=== PATIENT | female | born 1930 | race Caucasian/White ===

== ENCOUNTER 2016-09-22 09:26 | Outpatient (RCR) | payer MEDICARE, OTHER ==
[2016-03-05 19:55] VITALS: BP 162/86
[~2016-09-22 09:26] MED LIST: AMLODIPINE BES2.5 MG PO; ASPIRIN E.C. 8181 M1 PO; BACTRIM DS 8001 TAB PO; CALCIUM 600 W/V1 TAB PO; CLARITIN10 M1 PO; COLACE100 M1 PO; CRANBERRY FRUI425 MG PO; DAILY MULTIPLE1 T18 PO; DONEPEZIL HCL5 MG PO; DULCOLAX PO; DUO-KAPS1 CAP PO; DURAGESIC1 EAC1 TD; DURAGESIC25 MCG/PAT TD; FENTANYL 50MCG TD; FLEET ENEM1 BOT/133 RC; FUROSEMIDE20 MG PO; HCTZ 25MG25 MG PO; INDERAL PO; KETOROLAC TROME10 MG PO; LEXAPRO20 M1 PO; LISINOPRIL20 MG PO; LOPRESSOR100 M1; LOPRESSOR100 MG PO; MELOXICAM15 MG PO; METOPROLOL TAR100 MG PO; MIRALAX17 GM/DOSE PO; NAPROXEN375 MG PO; NORCO 325 MG-51 TA1 PO; NORCO 325 MG-51 TAB PO; PREDNISONE10 MG PO; PYRIDIUM100 M1 PO; RITE AID CALCI600 MG PO; SIMVASTATIN10 MG PO; TRIAMCINOLONE A15 GM TP; VALIUM 5MG T5 MG/TAB PO; ZESTRIL10 M1 PO; ZESTRIL40 MG PO; [UNRECOGNIZED DRUG - OTHER] NAS
== END 2016-10-20 13:25 ==
LOC: OPPGERO 09:26
DX: F32.2 Major depressive disorder, single episode, severe without psychotic features (principal); F41.1 Generalized anxiety disorder

== ENCOUNTER → 2017-01-13 | Outpatient (CLI) | payer MEDICARE, MEDICAID ==
[2016-03-05 19:55] VITALS: BP 162/86
== END ==
LOC: LAB 08:01
DX: I10 Essential (primary) hypertension (principal)

== ENCOUNTER → 2017-08-18 | Outpatient (CLI) | payer MEDICARE, MEDICAID ==
[2016-03-05 19:55] VITALS: BP 162/86
[2017-08-18 14:12] LABS: URINE APPEARANCE CLEAR; URINE BILIRUBIN NEGATIVE (NEGATIVE); URINE BLOOD NEGATIVE (NEGATIVE); URINE COLOR YELLOW; URINE GLUCOSE NEGATIVE (NEGATIVE); URINE KETONE NEGATIVE (NEGATIVE); URINE LEUKOCYTE ESTERASE NEGATIVE (NEGATIVE); URINE NITRATE NEGATIVE (NEGATIVE); URINE PROTEIN(semi-quant) TRACE mg/dL (NEGATIVE); URINE UROBILINOGEN NORMAL (NORMAL); URINE WBC 0-1 /hpf (0-3)
== END ==
LOC: LAB 13:08
PROVIDERS: Family Medicine
DX: R35.0 Frequency of micturition (principal)

== ENCOUNTER → 2017-09-24 | Outpatient (CLI) | payer MEDICARE, MEDICAID ==
[2016-03-05 19:55] VITALS: BP 162/86
[2017-09-24 13:19] LABS: BUN/CREATININE RATIO 24.5 (6.0-26.0); CALCIUM 9.6 mg/dL (8.4-10.2); POTASSIUM 3.9 mmol/L (3.6-5.0)
== END ==
LOC: LAB 12:41
PROVIDERS: Family Medicine
DX: R60.0 Localized edema (principal)

== ENCOUNTER → 2017-10-16 | Outpatient (CLI) | payer MEDICARE, MEDICAID ==
[2016-03-05 19:55] VITALS: BP 162/86
== END ==
LOC: LAB 08:47
DX: R68.89 Other general symptoms and signs (principal)

== ENCOUNTER → 2018-11-25 | Outpatient (CLI) | payer MEDICARE, MEDICAID ==
[2016-03-05 19:55] VITALS: BP 162/86
[2018-11-25 16:59] LABS: POTASSIUM 3.8 mmol/L (3.6-5.0)
== END ==
LOC: LAB 16:13
PROVIDERS: Family Medicine
DX: R39.81 Functional urinary incontinence (principal); M19.90 Unspecified osteoarthritis, unspecified site; F41.9 Anxiety disorder, unspecified; M47.817 Spondylosis without myelopathy or radiculopathy, lumbosacral region; R45.1 Restlessness and agitation; R60.9 Edema, unspecified; I10 Essential (primary) hypertension

== ENCOUNTER → 2019-01-13 | Outpatient (CLI) | payer MEDICARE, MEDICAID ==
[2016-03-05 19:55] VITALS: BP 162/86
[2019-01-13 15:58] LABS: BASO # 0.1 (0.02-0.10); EOS # 0.3 (0.04-0.40); EOS % 1.8 % (1.0-5.0); HEMATOCRIT 34.3 % (37.0-47.0); HEMOGLOBIN 11.1 g/dL (12.5-16.0); MEAN CELL VOLUME 100 fl (78-100); MEAN CORPUSCULAR HEMOGLOBIN 33 pg (27-31); MEAN CORPUSCULAR HGB CONC 32 g/dL (33-37); MEAN PLATELET VOLUME 9.9 fl (7.4-10.4); PLATELET COUNT 366 K/mm3 (130-400); RED BLOOD COUNT 3.42 M/mm3 (4.10-5.30); RED CELL DISTRIBUTION WIDTH 12.5 % (11.5-14.5); WHITE BLOOD COUNT 15.4 K/mm3 (4.8-10.8)
[2019-01-13 16:06] LABS: POTASSIUM 3.9 mmol/L (3.6-5.0)
[2019-01-13 16:47] LABS: MONO # 1.8 (0.20-0.80); NEU # 11.2 (1.40-6.50)
== END ==
LOC: LAB 15:31
PROVIDERS: Family Medicine
DX: M47.817 Spondylosis without myelopathy or radiculopathy, lumbosacral region (principal); R53.83 Other fatigue; F41.9 Anxiety disorder, unspecified; F32.9 Major depressive disorder, single episode, unspecified; K52.9 Noninfective gastroenteritis and colitis, unspecified

== ENCOUNTER → 2019-01-19 | Outpatient (CLI) | payer MEDICARE, MEDICAID ==
[2016-03-05 19:55] VITALS: BP 162/86
== END ==
LOC: RAD 15:49
DX: I27.29 Other secondary pulmonary hypertension (principal); I08.3 Combined rheumatic disorders of mitral, aortic and tricuspid valves

== ENCOUNTER → 2019-07-24 | Outpatient (CLI) | payer MEDICARE, MEDICAID ==
[2016-03-05 19:55] VITALS: BP 162/86
== END ==
LOC: RAD 15:20
DX: M47.817 Spondylosis without myelopathy or radiculopathy, lumbosacral region (principal); M16.12 Unilateral primary osteoarthritis, left hip; M16.11 Unilateral primary osteoarthritis, right hip; M17.12 Unilateral primary osteoarthritis, left knee; Z96.642 Presence of left artificial hip joint

== ENCOUNTER → 2019-10-03 | Outpatient (CLI) | payer MEDICARE, MEDICAID ==
[2016-03-05 19:55] VITALS: BP 162/86
[2019-10-03 16:50] LABS: URINE APPEARANCE CLOUDY; URINE COLOR YELLOW
[2019-10-03 16:51] LABS: URINE BILIRUBIN NEGATIVE (NEGATIVE); URINE BLOOD TRACE (NEGATIVE); URINE GLUCOSE NEGATIVE (NEGATIVE); URINE KETONE NEGATIVE (NEGATIVE); URINE LEUKOCYTE ESTERASE 2+ (NEGATIVE); URINE NITRATE POSITIVE (NEGATIVE); URINE PROTEIN(semi-quant) TRACE mg/dL (NEGATIVE); URINE UROBILINOGEN NORMAL (NORMAL); URINE WBC >50 /hpf (0-3)
== END ==
LOC: LAB 15:38
PROVIDERS: Family Medicine
DX: N39.0 Urinary tract infection, site not specified (principal)

== ENCOUNTER → 2019-10-12 | Outpatient (CLI) | payer MEDICARE, MEDICAID ==
[2016-03-05 19:55] VITALS: BP 162/86
[2019-10-12 14:07] LABS: URINE APPEARANCE CLEAR; URINE BILIRUBIN NEGATIVE (NEGATIVE); URINE BLOOD NEGATIVE (NEGATIVE); URINE COLOR YELLOW; URINE GLUCOSE NEGATIVE (NEGATIVE); URINE KETONE NEGATIVE (NEGATIVE); URINE LEUKOCYTE ESTERASE NEGATIVE (NEGATIVE); URINE NITRATE NEGATIVE (NEGATIVE); URINE PROTEIN(semi-quant) NEGATIVE (NEGATIVE); URINE UROBILINOGEN NORMAL (NORMAL)
[2019-10-12 14:08] LABS: URINE WBC 0-1 /hpf (0-3)
== END ==
LOC: LAB 13:43
PROVIDERS: Physician Assistant
DX: Z87.440 Personal history of urinary (tract) infections (principal)

== ENCOUNTER → 2019-10-31 | Outpatient (CLI) | payer MEDICARE, MEDICAID ==
[2016-03-05 19:55] VITALS: BP 162/86
[2019-10-31 13:51] LABS: URINE APPEARANCE HAZY; URINE BILIRUBIN NEGATIVE (NEGATIVE); URINE BLOOD NEGATIVE (NEGATIVE); URINE COLOR YELLOW; URINE GLUCOSE NEGATIVE (NEGATIVE); URINE KETONE NEGATIVE (NEGATIVE); URINE LEUKOCYTE ESTERASE 1+ (NEGATIVE); URINE NITRATE NEGATIVE (NEGATIVE); URINE PROTEIN(semi-quant) TRACE mg/dL (NEGATIVE); URINE UROBILINOGEN NORMAL (NORMAL)
[2019-10-31 13:52] LABS: URINE MUCUS PRESENT (NOT PRESENT)
== END ==
LOC: LAB 13:14
PROVIDERS: Family Medicine
DX: Z87.440 Personal history of urinary (tract) infections (principal)

== ENCOUNTER → 2020-08-13 | Outpatient (CLI) | payer MEDICARE, MEDICAID ==
[2016-03-05 19:55] VITALS: BP 162/86
[2020-08-13 13:48] LABS: URINE APPEARANCE HAZY; URINE COLOR YELLOW; URINE PROTEIN(semi-quant) TRACE mg/dL (NEGATIVE)
[2020-08-13 13:49] LABS: URINE BILIRUBIN NEGATIVE (NEGATIVE); URINE BLOOD NEGATIVE (NEGATIVE); URINE GLUCOSE NEGATIVE (NEGATIVE); URINE KETONE NEGATIVE (NEGATIVE); URINE LEUKOCYTE ESTERASE 1+ (NEGATIVE); URINE MUCUS PRESENT (NOT PRESENT); URINE NITRATE NEGATIVE (NEGATIVE); URINE UROBILINOGEN NORMAL (NORMAL)
== END ==
LOC: LAB 13:20
PROVIDERS: Family Medicine
DX: N39.0 Urinary tract infection, site not specified (principal)

== ENCOUNTER → 2021-01-27 | Outpatient (CLI) | payer MEDICARE, MEDICAID ==
[2016-03-05 19:55] VITALS: BP 162/86
[~2021-01-27] MED LIST changes: +AMLODIPINE BESYL5 MG PO; +CEFDINIR300 MG PO; +DITROPAN 5MG TAB5 MG PO; +DITROPAN XL 5MG5 M1 PO; +FLAGYL500 M1 PO; +HYDROCHLOROTH12.5 M2 PO; +LISINOPRIL40 MG PO; +MACROBID 100 M100 MG PO; +MACROBID 1100 MG/CAP PO; +NAMENDA10 MG PO; +TYLENOL ARTHRI650 M2 PO; +XANAX0.5 M1 PO
[2021-01-28 09:22] LABS: URINE APPEARANCE CLOUDY; URINE BILIRUBIN NEGATIVE (NEGATIVE); URINE BLOOD 50 ery/uL (NEGATIVE); URINE COLOR YELLOW; URINE GLUCOSE NEGATIVE (NEGATIVE); URINE KETONE NEGATIVE (NEGATIVE); URINE LEUKOCYTE ESTERASE 2+ (NEGATIVE); URINE MUCUS PRESENT (NOT PRESENT); URINE NITRATE NEGATIVE (NEGATIVE); URINE PROTEIN(semi-quant) TRACE mg/dL (NEGATIVE); URINE UROBILINOGEN NORMAL (NORMAL); URINE WBC 31-50 /hpf (0-3)
== END ==
LOC: LAB 15:26
PROVIDERS: Family Medicine
DX: N39.0 Urinary tract infection, site not specified (principal)

== ENCOUNTER → 2021-03-17 | Outpatient (CLI) | payer MEDICARE, MEDICAID ==
[2021-03-17 16:13] LABS: URINE APPEARANCE CLOUDY; URINE BILIRUBIN NEGATIVE (NEGATIVE); URINE BLOOD 50 ery/uL (NEGATIVE); URINE COLOR YELLOW; URINE GLUCOSE NEGATIVE (NEGATIVE); URINE KETONE NEGATIVE (NEGATIVE); URINE LEUKOCYTE ESTERASE 2+ (NEGATIVE); URINE NITRATE NEGATIVE (NEGATIVE); URINE PROTEIN(semi-quant) TRACE mg/dL (NEGATIVE); URINE UROBILINOGEN NORMAL (NORMAL); URINE WBC >50 /hpf (0-3)
[2021-03-17 16:14] LABS: URINE MUCUS PRESENT (NOT PRESENT)
== END ==
LOC: LAB 14:51
PROVIDERS: Family Medicine
DX: N39.0 Urinary tract infection, site not specified (principal)

== ENCOUNTER 2021-03-19 03:21 | Emergency (ER) | payer MEDICARE, MEDICAID ==
[~2021-03-19 03:21] MED LIST changes: -AMLODIPINE BESYL5 MG PO; -CEFDINIR300 MG PO; -DITROPAN 5MG TAB5 MG PO; -DITROPAN XL 5MG5 M1 PO; -FLAGYL500 M1 PO; -HYDROCHLOROTH12.5 M2 PO; -LISINOPRIL40 MG PO; -MACROBID 100 M100 MG PO; -MACROBID 1100 MG/CAP PO; -NAMENDA10 MG PO; -TYLENOL ARTHRI650 M2 PO; -XANAX0.5 M1 PO
[2021-03-19 04:10] LABS: BASO # 0.01 (0.02-0.10); EOS # 0.16 (0.04-0.40); EOS % 1.1 % (1.0-5.0); HEMATOCRIT 33.9 % (37.0-47.0); HEMOGLOBIN 11.1 g/dL (12.5-16.0); LYMPH# 1.25 (1.50-4.00); MEAN CELL VOLUME 101 fl (78-100); MEAN CORPUSCULAR HEMOGLOBIN 33 pg (27-31); MEAN CORPUSCULAR HGB CONC 33 g/dL (33-37); MONO # 0.63 (0.20-0.80); NEU # 12.02 (1.40-6.50); PLATELET COUNT 258 K/mm3 (130-400); RED BLOOD COUNT 3.35 M/mm3 (4.10-5.30); RED CELL DISTRIBUTION WIDTH 12.6 % (11.5-14.5); WHITE BLOOD COUNT 14.1 K/mm3 (4.8-10.8)
[2021-03-19 04:19] LABS: ALBUMIN 3.9 g/dL (3.4-4.8); POTASSIUM 3.6 mmol/L (3.5-5.1)
[2021-03-19 04:20] LABS: SODIUM 141 mmol/L (136-145)
[2021-03-19 04:21] LABS: CALCIUM 8.8 mg/dL (8.3-10.5)
[2021-03-19 04:22] LABS: GLUCOSE 144 mg/dL (65-105)
[2021-03-19 04:23] LABS: CARBON DIOXIDE 23 mmol/L (23-31)
[2021-03-19 04:24] LABS: TOTAL BILIRUBIN 0.6 mg/dL (0.2-1.2)
[2021-03-19 04:27] LABS: AST-SGOT 507 U/L (5-34)
[2021-03-19 04:28] LABS: ALT/SGPT 216 U/L (0-55)
[2021-03-19 04:29] LABS: LIPASE 34 U/L (8-78)
[2021-03-19 04:41] LABS: TROPONIN-I < 0.03 ng/mL (<0.030)
[2021-03-19 04:41] LABS: URINE APPEARANCE HAZY; URINE BILIRUBIN NEGATIVE (NEGATIVE); URINE BLOOD TRACE (NEGATIVE); URINE COLOR YELLOW; URINE GLUCOSE NEGATIVE (NEGATIVE); URINE KETONE NEGATIVE (NEGATIVE); URINE LEUKOCYTE ESTERASE 2+ (NEGATIVE); URINE NITRATE NEGATIVE (NEGATIVE); URINE PROTEIN(semi-quant) NEGATIVE (NEGATIVE); URINE UROBILINOGEN NORMAL (NORMAL); URINE WBC 31-50 /hpf (0-3)
[2021-03-19] MEDS ORDERED: LISINOPRIL40 MG PO (04:56)
[2021-03-19] MEDS ORDERED: AMLODIPINE BESYL5 MG PO (04:59)
[2021-03-19] MEDS ORDERED: DITROPAN 5MG TAB5 MG PO (05:00)
[2021-03-19] MEDS ORDERED: XANAX0.5 M1 PO (05:00)
[2021-03-19] MEDS ORDERED: HYDROCHLOROTH12.5 M2 PO (05:02)
[2021-03-19] MEDS ORDERED: MACROBID 1100 MG/CAP PO (05:02)
[2021-03-19] MEDS ORDERED: DITROPAN XL 5MG5 M1 PO (05:03)
[2021-03-19 05:27] LABS: D-DIMER 4.69 mg/L FEU (0.15-0.50)
[2021-03-19 09:30] VITALS: BP 98/50
[2021-03-19 09:30] LABS: ACETAMINOPHEN < 1 ug/mL
[2021-03-19] MEDS ORDERED: NAMENDA10 MG PO (10:38)
[2021-03-19] MEDS ORDERED: MACROBID 100 M100 MG PO (10:38)
[2021-03-19] MEDS ORDERED: TYLENOL ARTHRI650 M2 PO (10:38)
[2021-03-20] MEDS ORDERED: CEFDINIR300 MG PO (17:11)
[2021-03-20] MEDS ORDERED: FLAGYL500 M1 PO (17:23)
== END 2021-03-19 09:30 | disposition other institution (70) ==
LOC: ED 03:21
PROVIDERS: Nurse Practitioner Family
DX: K52.9 Noninfective gastroenteritis and colitis, unspecified (principal); F03.90 Unspecified dementia, unspecified severity, without behavioral disturbance, psychotic disturbance, mood disturbance, and anxiety; N39.0 Urinary tract infection, site not specified; R94.5 Abnormal results of liver function studies; K57.90 Diverticulosis of intestine, part unspecified, without perforation or abscess without bleeding; I10 Essential (primary) hypertension; F41.9 Anxiety disorder, unspecified; F32.9 Major depressive disorder, single episode, unspecified; Z91.19 Patient's noncompliance with other medical treatment and regimen; Z79.899 Other long term (current) drug therapy; Z20.822 Contact with and (suspected) exposure to COVID-19
CPT/HCPCS: J0696; J2405; J7030; Q9967

== ENCOUNTER 2021-03-19 08:34 | Inpatient (IN) | payer MEDICARE, MEDICAID ==
[~2021-03-19 08:34] MED LIST changes: +AMLODIPINE BESYL5 MG PO; +DITROPAN 5MG TAB5 MG PO; +DITROPAN XL 5MG5 M1 PO; +HYDROCHLOROTH12.5 M2 PO; +LISINOPRIL40 MG PO; +MACROBID 1100 MG/CAP PO; +XANAX0.5 M1 PO
[2021-03-19 09:30] VITALS: BP 98/50
[2021-03-19] MEDS ORDERED: MACROBID 100 M100 MG PO (10:38)
[2021-03-19] MEDS ORDERED: NAMENDA10 MG PO (10:38)
[2021-03-19] MEDS ORDERED: TYLENOL ARTHRI650 M2 PO (10:38)
[2021-03-19 14:03] VITALS: BP 117/63
[2021-03-19 18:20] VITALS: BP 84/51
[2021-03-19 21:33] VITALS: BP 101/63
[2021-03-19 22:57] LABS: HEPATITIS C ANTIBODY Negative (Negative)
[2021-03-20 01:50] VITALS: BP 114/60
[2021-03-20 06:13] VITALS: BP 118/64
[2021-03-20 07:59] LABS: BASO # 0.04 (0.02-0.10); EOS # 0.92 (0.04-0.40); HEMATOCRIT 31.5 % (37.0-47.0); HEMOGLOBIN 10.2 g/dL (12.5-16.0); LYMPH# 1.85 (1.50-4.00); MEAN CELL VOLUME 101 fl (78-100); MEAN CORPUSCULAR HEMOGLOBIN 33 pg (27-31); MEAN CORPUSCULAR HGB CONC 32 g/dL (33-37); MEAN PLATELET VOLUME 11.5 fl (7.4-10.4); MONO # 0.91 (0.20-0.80); NEU # 7.73 (1.40-6.50); PLATELET COUNT 210 K/mm3 (130-400); RED BLOOD COUNT 3.12 M/mm3 (4.10-5.30); RED CELL DISTRIBUTION WIDTH 12.8 % (11.5-14.5); WHITE BLOOD COUNT 11.5 K/mm3 (4.8-10.8)
[2021-03-20 08:11] LABS: ALBUMIN 3.6 g/dL (3.4-4.8); POTASSIUM 4.1 mmol/L (3.5-5.1)
[2021-03-20 08:12] LABS: CALCIUM 8.5 mg/dL (8.3-10.5)
[2021-03-20 08:13] LABS: TOTAL PROTEIN 6.5 g/dL (6.2-8.1)
[2021-03-20 08:15] LABS: TOTAL BILIRUBIN 1.1 mg/dL (0.2-1.2)
[2021-03-20 09:10] VITALS: BP 107/68
[2021-03-20 13:37] VITALS: BP 132/74
[2021-03-20 16:27] VITALS: BP 132/74
[2021-03-20] MEDS ORDERED: CEFDINIR300 MG PO (17:11)
[2021-03-20] MEDS ORDERED: FLAGYL500 M1 PO (17:23)
[2021-03-20 17:33] VITALS: BP 135/77
== END 2021-03-20 17:42 | DRG 690 ==
LOC: MED/SURG 08:34
PROVIDERS: ADMIT Physician Assistant
DX: N39.0 Urinary tract infection, site not specified (principal); F03.90 Unspecified dementia, unspecified severity, without behavioral disturbance, psychotic disturbance, mood disturbance, and anxiety; I10 Essential (primary) hypertension; K52.9 Noninfective gastroenteritis and colitis, unspecified; R53.1 Weakness; R94.5 Abnormal results of liver function studies; R29.6 Repeated falls; Z96.642 Presence of left artificial hip joint; Z90.710 Acquired absence of both cervix and uterus
CPT/HCPCS: J0696; J1650

== ENCOUNTER → 2021-04-04 | Outpatient (CLI) | payer MEDICARE, MEDICAID ==
[~2021-04-04] MED LIST changes: +CEFDINIR300 MG PO; +FLAGYL500 M1 PO; +MACROBID 100 M100 MG PO; +NAMENDA10 MG PO; +TYLENOL ARTHRI650 M2 PO
[2021-04-04 17:52] LABS: POTASSIUM 4.3 mmol/L (3.5-5.1)
[2021-04-04 17:53] LABS: CALCIUM 9.7 mg/dL (8.3-10.5)
[2021-04-04 17:55] LABS: TOTAL PROTEIN 7.4 g/dL (6.2-8.1)
[2021-04-04 17:56] LABS: TOTAL BILIRUBIN 0.3 mg/dL (0.2-1.2)
== END ==
LOC: LAB 17:20
PROVIDERS: Family Medicine
DX: Z87.440 Personal history of urinary (tract) infections (principal)

== ENCOUNTER → 2021-04-14 | Outpatient (CLI) | payer MEDICARE, MEDICAID ==
[2021-04-14 13:09] LABS: URINE APPEARANCE HAZY; URINE BILIRUBIN NEGATIVE (NEGATIVE); URINE BLOOD TRACE (NEGATIVE); URINE COLOR YELLOW; URINE GLUCOSE NEGATIVE (NEGATIVE); URINE KETONE NEGATIVE (NEGATIVE); URINE LEUKOCYTE ESTERASE 2+ (NEGATIVE); URINE NITRATE POSITIVE (NEGATIVE); URINE PROTEIN(semi-quant) TRACE mg/dL (NEGATIVE); URINE UROBILINOGEN NORMAL (NORMAL); URINE WBC 31-50 /hpf (0-3)
[2021-04-14 13:10] LABS: URINE MUCUS PRESENT (NOT PRESENT)
== END ==
LOC: LAB 12:42
PROVIDERS: Family Medicine
DX: H91.90 Unspecified hearing loss, unspecified ear (principal); R41.0 Disorientation, unspecified; Z99.89 Dependence on other enabling machines and devices

== ENCOUNTER 2021-07-10 09:54 | Outpatient (RCR) | payer MEDICARE, MEDICAID | END 2021-09-19 | disposition home or self-care (01) | LOC: SPEECH 09:54 | DX: R13.10 Dysphagia, unspecified (principal) ==

== ENCOUNTER → 2021-08-19 | Outpatient (CLI) | payer MEDICARE, MEDICAID ==
[2021-08-19 14:15] LABS: URINE APPEARANCE HAZY; URINE COLOR YELLOW
[2021-08-19 14:16] LABS: URINE BILIRUBIN NEGATIVE (NEGATIVE); URINE BLOOD TRACE (NEGATIVE); URINE GLUCOSE NEGATIVE (NEGATIVE); URINE KETONE NEGATIVE (NEGATIVE); URINE LEUKOCYTE ESTERASE 2+ (NEGATIVE); URINE MUCUS PRESENT (NOT PRESENT); URINE NITRATE NEGATIVE (NEGATIVE); URINE PROTEIN(semi-quant) 1+ mg/dL (NEGATIVE); URINE UROBILINOGEN NORMAL (NORMAL)
== END ==
LOC: LAB 13:42
PROVIDERS: Family Medicine
DX: R82.998 Other abnormal findings in urine (principal)

== ENCOUNTER → 2021-10-28 | Outpatient (CLI) | payer MEDICARE, MEDICAID ==
[2021-10-28 16:25] LABS: URINE APPEARANCE CLOUDY; URINE COLOR YELLOW; URINE PROTEIN(semi-quant) 1+ (NEGATIVE)
[2021-10-28 16:26] LABS: URINE BILIRUBIN NEGATIVE (NEGATIVE); URINE BLOOD TRACE (NEGATIVE); URINE GLUCOSE NEGATIVE (NEGATIVE); URINE KETONE NEGATIVE (NEGATIVE); URINE LEUKOCYTE ESTERASE 2+ (NEGATIVE); URINE NITRATE POSITIVE (NEGATIVE); URINE UROBILINOGEN NORMAL (NORMAL)
[2021-10-28 16:30] LABS: URINE WBC >50 /hpf (0-3)
== END ==
LOC: LAB 14:17
PROVIDERS: Family Medicine
DX: R82.998 Other abnormal findings in urine (principal); R39.15 Urgency of urination

== ENCOUNTER → 2021-11-07 | Outpatient (CLI) | payer MEDICARE, MEDICAID ==
[2021-11-07 16:16] LABS: BASO # 0.06 K/mm3 (0.02-0.10); EOS % 7.9 % (1.0-5.0); HEMATOCRIT 35.2 % (37.0-47.0); HEMOGLOBIN 11.1 g/dL (12.5-16.0); LYMPH# 2.07 K/mm3 (1.50-4.00); MEAN CELL VOLUME 104 fl (78-100); MEAN CORPUSCULAR HEMOGLOBIN 33 pg (27-31); MEAN CORPUSCULAR HGB CONC 32 g/dL (33-37); MEAN PLATELET VOLUME 11.5 fl (7.4-10.4); MONO # 0.79 K/mm3 (0.20-0.80); NEU # 5.17 K/mm3 (1.40-6.50); PLATELET COUNT 323 K/mm3 (130-400); RED BLOOD COUNT 3.39 M/mm3 (4.10-5.30); RED CELL DISTRIBUTION WIDTH 12.2 % (11.5-14.5); WHITE BLOOD COUNT 8.9 K/mm3 (4.8-10.8)
[2021-11-07 17:06] LABS: ALBUMIN 3.8 g/dL (3.4-4.8); POTASSIUM 4.6 mmol/L (3.5-5.1)
[2021-11-07 17:08] LABS: CALCIUM 9.1 mg/dL (8.3-10.5)
[2021-11-07 17:09] LABS: TOTAL PROTEIN 6.3 g/dL (6.2-8.1)
[2021-11-07 17:11] LABS: TOTAL BILIRUBIN 0.2 mg/dL (0.2-1.2)
== END ==
LOC: LAB 15:57
PROVIDERS: Family Medicine
DX: R53.83 Other fatigue (principal); I10 Essential (primary) hypertension; F03.90 Unspecified dementia, unspecified severity, without behavioral disturbance, psychotic disturbance, mood disturbance, and anxiety; N39.0 Urinary tract infection, site not specified

== ENCOUNTER → 2021-11-11 | Outpatient (CLI) | payer MEDICARE, MEDICAID ==
[2021-11-11 10:26] LABS: URINE APPEARANCE CLOUDY; URINE COLOR LT YELLOW
[2021-11-11 10:27] LABS: PH-URINE 7.5 (5.0 - 8.0); URINE BILIRUBIN NEGATIVE (NEGATIVE); URINE BLOOD 50 ery/uL (NEGATIVE); URINE GLUCOSE NEGATIVE (NEGATIVE); URINE KETONE NEGATIVE (NEGATIVE); URINE LEUKOCYTE ESTERASE 2+ (NEGATIVE); URINE NITRATE NEGATIVE (NEGATIVE); URINE PROTEIN(semi-quant) 1+ (NEGATIVE); URINE UROBILINOGEN NORMAL (NORMAL)
[2021-11-11 10:28] LABS: URINE WBC QNS /hpf (0-3)
[2021-11-11 10:29] LABS: URINE MUCUS QNS (NOT PRESENT)
== END ==
LOC: LAB 09:37
PROVIDERS: Family Medicine
DX: I10 Essential (primary) hypertension (principal); N39.0 Urinary tract infection, site not specified; F03.90 Unspecified dementia, unspecified severity, without behavioral disturbance, psychotic disturbance, mood disturbance, and anxiety

== ENCOUNTER → 2021-12-22 | Outpatient (CLI) | payer MEDICARE, MEDICAID ==
[2021-12-22 12:53] LABS: URINE APPEARANCE HAZY; URINE BILIRUBIN NEGATIVE (NEGATIVE); URINE BLOOD 50 ery/uL (NEGATIVE); URINE COLOR YELLOW; URINE GLUCOSE NEGATIVE (NEGATIVE); URINE KETONE NEGATIVE (NEGATIVE); URINE LEUKOCYTE ESTERASE 2+ (NEGATIVE); URINE MUCUS PRESENT (NOT PRESENT); URINE NITRATE POSITIVE (NEGATIVE); URINE PROTEIN(semi-quant) TRACE (NEGATIVE); URINE UROBILINOGEN NORMAL (NORMAL); URINE WBC 31-50 /hpf (0-3)
== END ==
LOC: LAB 12:03
PROVIDERS: Family Medicine
DX: F41.9 Anxiety disorder, unspecified (principal)

== ENCOUNTER 2022-01-06 11:31 | Observation (INO) | payer MEDICARE, MEDICAID ==
[~2022-01-06] VITALS: Ht 157.5 cm; Wt 81.0 kg
[2022-01-06 12:10] LABS: BASO # 0.09 K/mm3 (0.02-0.10); EOS # 0.78 K/mm3 (0.04-0.40); EOS % 9.2 % (1.0-5.0); HEMATOCRIT 38.8 % (37.0-47.0); HEMOGLOBIN 12.3 g/dL (12.5-16.0); LYMPH# 2.85 K/mm3 (1.50-4.00); MEAN CELL VOLUME 101 fl (78-100); MEAN CORPUSCULAR HEMOGLOBIN 32 pg (27-31); MEAN CORPUSCULAR HGB CONC 32 g/dL (33-37); MEAN PLATELET VOLUME 10.9 fl (7.4-10.4); MONO # 0.84 K/mm3 (0.20-0.80); NEU # 3.92 K/mm3 (1.40-6.50); PLATELET COUNT 269 K/mm3 (130-400); RED BLOOD COUNT 3.83 M/mm3 (4.10-5.30); RED CELL DISTRIBUTION WIDTH 12.2 % (11.5-14.5); WHITE BLOOD COUNT 8.5 K/mm3 (4.8-10.8)
[2022-01-06 12:20] LABS: ALBUMIN 3.9 g/dL (3.4-4.8)
[2022-01-06 12:21] LABS: POTASSIUM 4.3 mmol/L (3.5-5.1)
[2022-01-06 12:22] LABS: CALCIUM 9.7 mg/dL (8.3-10.5)
[2022-01-06 12:23] LABS: TOTAL PROTEIN 7.4 g/dL (6.2-8.1)
[2022-01-06 12:25] LABS: TOTAL BILIRUBIN 0.3 mg/dL (0.2-1.2)
[2022-01-06 13:22] LABS: URINE APPEARANCE CLEAR; URINE BILIRUBIN NEGATIVE (NEGATIVE); URINE BLOOD NEGATIVE (NEGATIVE); URINE COLOR YELLOW; URINE GLUCOSE NEGATIVE (NEGATIVE); URINE KETONE NEGATIVE (NEGATIVE); URINE LEUKOCYTE ESTERASE 2+ (NEGATIVE); URINE NITRATE NEGATIVE (NEGATIVE); URINE PROTEIN(semi-quant) TRACE (NEGATIVE); URINE UROBILINOGEN NORMAL (NORMAL); URINE WBC 16-30 /hpf (0-3)
[2022-01-06 13:23] LABS: URINE MUCUS PRESENT (NOT PRESENT)
[2022-01-06 14:50] VITALS: BP 145/69
[2022-01-06 15:01] VITALS: BP 145/69
[2022-01-06 18:08] VITALS: BP 159/81
[2022-01-06 22:21] VITALS: BP 120/74
[2022-01-07 01:44] VITALS: BP 134/76
[2022-01-07 05:42] VITALS: BP 132/71
[2022-01-07 09:37] VITALS: BP 101/66
[2022-01-07 13:47] VITALS: BP 109/69
[2022-01-07 17:22] VITALS: BP 137/76
[2022-01-07 22:11] VITALS: BP 134/66
[2022-01-08 02:11] VITALS: BP 136/75
[2022-01-08 05:53] VITALS: BP 129/87
[2022-01-08 10:22] VITALS: BP 153/55
== END 2022-01-08 10:30 ==
LOC: ED 11:31 → MED/SURG 13:55
PROVIDERS: ADMIT Physician Assistant
DX: S82.402A Unspecified fracture of shaft of left fibula, initial encounter for closed fracture (principal); R53.1 Weakness; N39.0 Urinary tract infection, site not specified; R53.81 Other malaise; R29.6 Repeated falls; F03.90 Unspecified dementia, unspecified severity, without behavioral disturbance, psychotic disturbance, mood disturbance, and anxiety; W19.XXXA Unspecified fall, initial encounter
CPT/HCPCS: G0378; J0696; J1650; L4386